=== PATIENT | female | born 2000 | race Caucasian/White ===

== ENCOUNTER 2025-02-25 10:37 | Emergency (ER) | payer OTHER, SELFPAY ==
--- NOTE | ~2025-02-25 | CT_ITS ---
CLINICAL HISTORY: periumbillical pain --- Additional Notes or Special Instructions: pt. does not have IV access @1620 - CF CT abdomen and pelvis with IV contrast. COMPARISON: None provided. FINDINGS: Partially visualized lung bases are unremarkable. No focal hepatic lesion. Normal gallbladder. Normal spleen. Normal pancreas. Normal adrenal glands. Symmetric renal enhancement. No hydronephrosis. Appendix is normal in caliber measuring up to 4 mm. No periappendiceal or pericecal inflammatory changes. Mild colonic stool burden. No bowel obstruction. No evidence of diverticulitis. No mesenteric or retroperitoneal lymphadenopathy. Normal abdominal aorta. Normal appearance of the urinary bladder. Dominant left ovarian cystic lesion measuring up to 2.2 cm. Small fat containing umbilical hernia. No surrounding inflammatory changes. No acute fracture or suspicious bone lesion IMPRESSION: 1. Small fat containing umbilical hernia. No surrounding inflammatory changes. No evidence of bowel involvement. 2. No evidence of appendicitis or bowel obstruction. No diverticulitis. 3. Dominant left ovarian cyst/follicle measuring up to 2.2 cm. This document has been electronically signed by: Forrest Kerr MD on 02/25/2025 17:44:56
--- NOTE | 2025-02-25 10:43 | ED.GENADULT ---
HPI - General Adult General Chief complaint: Abdominal Pain Stated complaint: Vomiting 2 weeks Time Seen by Provider: 02/25/25 16:03 Source: patient Mode of arrival: ambulatory Limitations: no limitations History of Present Illness ED Provider: Dr. Aicha Dennison HPI narrative: Patient comes to the emergency room complaining of nausea and vomiting for about 2 weeks and periumbilical pain. Patient states that a week ago she had diarrhea as well. Patient denies any chest pain or shortness of breath, no UTI symptoms. Patient states that she is currently menstruating. Patient states that any time that she eats anything she vomits. Related Data Previous Rx's ?Medication ?Instructions ?Recorded acetaminophen 500 mg tablet 500 mg PO Q6H PRN fever or pain 02/25/25 #30 tabs ibuprofen 600 mg tablet 600 mg PO Q8H PRN fever or pain 02/25/25 #30 tabs Allergies Allergy/AdvReac Type Severity Reaction Status Date / Time No Known Allergies (No Known Allergy Unverified 02/25/25 10:45 Allergies*) Review of Systems Review of Systems: Constitutional : No Weight loss, No Fever, No Chills, No Night Sweats, No Fatigue, No Malaise ENT/Mouth : No Hearing loss, No Ear Pain, No Nasal Congestion, No Sinus Pain, No Hoarseness, No sore throat, No Rhinorrhea, No Swallowing Difficulty Eyes: No Eye Pain, No Swelling, No Redness, No Foreign Body, No Discharge, No Vision Changes Cardiovascular : No Chest Pain, No SOB, No Dyspnea on Exertion, No Orthopnea, No Edema, No Palpitations Respiratory : No Cough, No Sputum, No Wheezing, No Smoke Exposure, No Dyspnea Gastrointestinal : Complaining of nausea and vomiting, resolved diarrhea,No Constipation, complaining of periumbilical pain Genitourinary : no irregular bleeding, No Dysuria, No Urinary Frequency, No Hematuria, No Urinary Incontinence, No Urgency, No Flank Pain, No Urinary Flow Changes, No Hesitancy Musculoskeletal : No joint pain, No Myalgias, No Joint Swelling Skin : No Skin Lesions, No rash Neuro : No Weakness, No Numbness, No Paresthesias, No Loss of Consciousness, No Dizziness, No Headache Psych : No Anxiety/Panic, No Depression, No SI/HI/AH/VH, No Social Issues, Heme/Lymph: No Bruising, No Bleeding,No Lymphadenopathy Endocrine : No Polyuria, No Polydipsia, No Temperature Intolerance [facility] Social History Social History Smoked in Last 30 Days: No Use of substances other than those prescribed or required for medical reasons: Yes Substance Use Type: Marijuana Advance Directives: No Advance Directives Information Provided: No Patient : No Physical Exam ED Exam Exam: Appearance: Alert. Oriented X3. No acute distress. Well-appearing, playing on her phone Eyes: Pupils equal, round and reactive to light. ENT: Pharynx normal. Neck: Normal inspection. Neck supple. No lymph nodes noted. No crepitus CVS: Normal heart rate and rhythm. Pulses normal. Normal S1 and S2 Respiratory: No respiratory distress. Breath sounds normal. No Wheezing. No rales Abdomen: Soft, nondistended, mild discomfort to palpation in the periumbilical area, very mild rebound, no guarding Skin: Skin warm and dry. Normal skin color. Normal skin turgor. Extremities: No lower extremity edema. No Lacerations. No Rash Neuro: Oriented X 3. No motor deficit. No sensory deficit. Moving all extremities. No slurred speech. CN 2 through 12 grossly intact Psych: calm, cooperative, normal affect Vital Signs: Vital Signs - 24 hr 02/25/25 10:44 02/25/25 16:40 Temperature 98 F 98.4 F Pulse Rate 82 80 Respiratory Rate 16 16 Blood Pressure 116/68 105/67 Pulse Oximetry 99 97 Oxygen Delivery Method Room Air Room Air BMI result Body Mass Index 23.4 Course Course Course Narrative: RME, this is a rapid medical exam performed by Marco Antonio Solomon please refer to primary provider for complete H&P- 24-year-old female presents for evaluation of nausea, vomiting for 2 weeks. She did have an episode of diarrhea. Plan for labs, urinalysis and testing. Medications Administered Discontinued Medications Generic Name Dose Route Start Last Admin Trade Name Freq PRN Reason Stop Dose Admin Sodium Chloride 1,000 mls @ 999 mls/hr 02/25/25 16:10 02/25/25 18:02 Ns IVCONT 02/25/25 17:10 Infused .Q1H1M ONE Infusion Iohexol 100 ml 02/25/25 16:52 02/25/25 16:55 Iohexol 350 Mg/Ml 100 Ml Infus..Btl IV 02/25/25 16:53 85 ml ONCE ONE Administration Ketorolac Tromethamine 30 mg 02/25/25 16:10 02/25/25 16:30 Ketorolac Tromethamine 30 Mg/Ml Vial IVPUSH 02/25/25 16:11 30 mg ONCE ONE Administration Ondansetron HCl 4 mg 02/25/25 16:10 02/25/25 16:31 Ondansetron Hcl 4 Mg/2 Ml Vial IVPUSH 02/25/25 16:11 4 mg ONCE ONE Administration Medical Decision Making Medical Decision Making [facility] Narrative: Patient receiving IV fluids, Zofran and ketorolac My interpretation of labs: No significant abnormality in patient's hematology and chemistry, negative hCG. Urinalysis positive for blood, patient is currently menstruating. Urine toxicology positive for buprenorphine and THC. My interpretation of CT scan: Small fat containing umbilical hernia, no evidence of appendicitis or bowel obstruction, no diverticulitis. Patient has a known left ovarian follicle/cyst measuring up to 2.2 cm I discussed the above-mentioned with the patient, patient responded well to ketorolac. Patient states that she follow-up with the PCP, has an appointment pending in 2 weeks. Differential Diagnosis Differential Diagnoses: The differential diagnosis associated with the presentation includes (Appendicitis, ovarian cyst, gastritis, gastroenteritis, diverticulitis) Admission/Observation Consideration of admission/observation: Escalation of care including admission/observation considered (Given patient's length of symptoms, observation was considered) Lab Data [facility] Lab Attestation statement: I reviewed the patient's lab results. 02/25/25 11:51 02/25/25 11:51 Labs: Lab Results 02/25/25 Range/Units 11:51 WBC 7.3 (4.8-10.8) X10*3/uL RBC 5.23 (4.20-5.50) X10*6/uL Hgb 15.6 (12.0-16.0) g/dl Hct 44.5 (37.0-47.0) % MCV 85.1 (80.0-98.0) fL MCH 29.8 (27.0-33.0) pg MCHC 35.1 H (31.0-35.0) g/dl RDW 11.6 (11.0-16.0) % Plt Count 262 (160-400) X10*3/uL MPV 10.2 (9.4-12.3) fL Immature Gran % (Auto) 0.3 (0.0-0.4) % Neut % (Auto) 64.0 (45-73) % Lymph % (Auto) 27.4 (20-40) % Cloud % (Auto) 6.9 (2-11) % Eos % (Auto) 0.8 (0-4) % Baso % (Auto) 0.6 (0-2) % Lymph # (Auto) 2.0 (1.2-4.9) X10*3/uL Cloud # (Auto) 0.5 (0.1-1.2) X10*3/uL Eos # (Auto) 0.1 (0.0-0.4) X10*3/uL Baso # (Auto) 0.0 (0.0-0.2) X10*3/uL Abs Immat Gran (auto) 0.02 (0.00-0.03) X10*3/uL Absolute Neuts (auto) 4.6 (2.0-8.3) x10*3/uL Absolute Nucleated RBC 0.000 (0.0-0.012) X10*3/uL Nucleated RBC % (auto) 0.0 (0.0-0.2) /100WBC Sodium 139 (135-145) mmol/L Potassium 3.9 (3.3-5.1) mmol/L Chloride 107 (96-108) mmol/L Carbon Dioxide 25 (22-29) mmol/L Anion Gap 11 L (12-20) BUN 12 (9-16) mg/dL Creatinine 0.69 (0.5-1.4) mg/dL Estim Creat Clear Calc 117.6 Estimated GFR > 60 Random Glucose 82 (60-115) mg/dL Calcium 9.5 (8.4-10.2) mg/dL Total Bilirubin 0.6 (0.0-1.0) mg/dL AST 20 (5-31) U/L ALT 14 (0-31) U/L Alkaline Phosphatase 53 (39-117) U/L Total Protein 7.1 (6.5-8.0) g/dL Albumin 5.0 (3.5-5.0) g/dL Lipase 19 (8-78) U/L Beta HCG, Quant < 2 mIU/mL Urine Color Yellow Urine Appearance Clear Urine pH 6.5 (5.0-9.0) Ur Specific [place] >= 1.030 H (1.005-1.025) Urine Protein 30 (1+) H (Neg-Trace) mg/dL Urine Glucose (UA) Negative (Negative) mg/dL Urine Ketones >=160 (Negative) mg/dL Urine Blood Large (3+) H (Negative) Urine Nitrite Negative (Negative) Ur Leukocyte Esterase Small (1+) H (Negative) Urine RBC 3-5 H (0-2) /HPF Urine WBC 0-5 (0-5) /HPF Ur Squamous Epith Cells 6-10 (0-2) /HPF Urine Bacteria Trace (None Seen) Hyaline Casts 0-2 (0-2) /LPF Urine Opiates Screen Not Detected (Not Detect) Ur Buprenorphine Scrn Positive H (Not Detect) ng/mL Ur Oxycodone Screen Not Detected (Not Detect) ng/mL Urine Methadone Screen Not Detected (Not Detect) ng/mL Urine Fentanyl Screen Not Detected (Not Detect) Ur Barbiturates Screen Not Detected (Not Detect) Ur Phencyclidine Scrn Not Detected (Not Detect) Ur Amphetamines Screen Not Detected (Not Detect) U Benzodiazepines Scrn Not Detected (Not Detect) Urine Cocaine Screen Not Detected (Not Detect) U Marijuana (THC) Screen POSITIVE H (Not Detect) Independent Interpretation I performed an independent interpretation of an: CT Scan Radiology Impression Discussion of test interpretation with radiology: I have reviewed the radiologist's reading. Radiologist Impression: Partially visualized lung bases are unremarkable. No focal hepatic lesion. Normal gallbladder. Normal spleen. Normal pancreas. Normal adrenal glands. Symmetric renal enhancement. No hydronephrosis. Appendix is normal in caliber measuring up to 4 mm. No periappendiceal or pericecal inflammatory changes. Mild colonic stool burden. No bowel obstruction. No evidence of diverticulitis. No mesenteric or retroperitoneal lymphadenopathy. Normal abdominal aorta. Normal appearance of the urinary bladder. Dominant left ovarian cystic lesion measuring up to 2.2 cm. Small fat containing umbilical hernia. No surrounding inflammatory changes. No acute fracture or suspicious bone lesion IMPRESSION: 1. Small fat containing umbilical hernia. No surrounding inflammatory changes. No evidence of bowel involvement. 2. No evidence of appendicitis or bowel obstruction. No diverticulitis. 3. Dominant left ovarian cyst/follicle measuring up to 2.2 cm. Critical Care Time Critical Care Time Critical Care Time: Yes Total Critical Care Time: 35 Attestation: I have personally provided critical care time. Time includes review of lab data, radiology results, discussion with consultants, and monitoring for potential decompensation. Intervention performed as documented. Discharge Plan Discharge Clinical Impression: Ovarian cyst Patient Disposition: Home, Self-Care Instructions: Ovarian Cyst (ED) Additional Instructions: Please follow-up with your primary care physician tomorrow. If you have any worsening or new symptoms, please return to the emergency room or call 911 Prescriptions: New ibuprofen 600 mg tablet 600 mg PO Q8H PRN (Reason: fever or pain) Qty: 30 0RF acetaminophen 500 mg tablet 500 mg PO Q6H PRN (Reason: fever or pain) Qty: 30 0RF Print Language: Indonesian
[2025-02-25 10:44] VITALS: BP 116/68; PULSE 82; RESP 16; TEMP 36.6; O2SAT 99; BMI 23.4
[2025-02-25 12:05] LABS: MANUAL DIFF FLAG NO
[2025-02-25 12:09] LABS: Appearance Urine Clear; Glucose Urine UA Negative (Negative); PH 6.5 (5.0-9.0); Specific Gravity - Urine >= 1.030 (1.005-1.025); UMIC TRIGGER UACC YES
[2025-02-25 12:15] LABS: Hematocrit 44.5 % (37.0-47.0); Hemoglobin 15.6 g/dl (12.0-16.0); Imm Gran Abs Auto 0.02 X10*3/uL (0.00-0.03); Imm Gran Pct Auto 0.3 % (0.0-0.4); Lymphocytes Absolute Auto 2.0 X10*3/uL (1.2-4.9); Mean Corpuscular HGB Conc 35.1 g/dl (31.0-35.0); Mean Corpuscular Hemoglobin 29.8 pg (27.0-33.0); Mean Corpuscular Volume 85.1 fL (80.0-98.0); NRBC Abs Auto 0.000 X10*3/uL (0.0-0.012); NRBC Pct Auto 0.0 /100WBC (0.0-0.2); Platelet Count 262 X10*3/uL (160-400); Red Blood Count 5.23 X10*6/uL (4.20-5.50); White Blood Count 7.3 X10*3/uL (4.8-10.8)
[2025-02-25 12:19] LABS: UACC Culture Trigger YES
[2025-02-25 12:29] LABS: Alanine Aminotransferase 14 U/L (0-31); Albumin Level 5.0 g/dL (3.5-5.0); Alkaline Phosphatase 53 U/L (39-117); Anion Gap 11 (12-20); Aspartate Amino Transferase 20 U/L (5-31); Blood Urea Nitrogen 12 mg/dL (9-16); Calcium 9.5 mg/dL (8.4-10.2); Carbon Dioxide 25 mmol/L (22-29); Chloride 107 mmol/L (96-108); Creatinine Clr Calc Pharmacy 117.6; Estimated Glomerular Filt Rate > 60; Lipase 19 U/L (8-78); Potassium 3.9 mmol/L (3.3-5.1); Sodium 139 mmol/L (135-145); Total Protein 7.1 g/dL (6.5-8.0)
[2025-02-25 12:31] LABS: Cannabinoid Screen Urine POSITIVE (Not Detect)
[2025-02-25 16:40] VITALS: BP 105/67; PULSE 80; RESP 16; TEMP 36.9; O2SAT 97
[2025-02-25] MEDS: iohexoL 350 MG/ML 100 ML INFUS..BTL IV (16:55)
[2025-02-25 19:00] VITALS: BP 117/71; PULSE 78; RESP 16; TEMP 36.8; O2SAT 97
--- OUTSIDE RECORDS SUMMARY | 2025-02-25 20:57 | XMS_ITS ---
Author Name [facility] Organization Unknown Care Team Organization Name Specialty Phone Email Start Date End Da te [facility] Charity Cunningham Primary Care 09/12/20222023 [facility] Birdie Rodriguez Primary Care 03/15/2022 12/25/2023
== END 2025-02-25 19:01 | disposition home or self-care (01) ==
PROVIDERS: Physician Assistant; Emergency Provider Emergency Medicine
DX: N83.202 Unspecified ovarian cyst, left side (principal); R11.2 Nausea with vomiting, unspecified; R10.22 Pelvic and perineal pain left side; K42.9 Umbilical hernia without obstruction or gangrene; Z51.81 Encounter for therapeutic drug level monitoring; Z79.899 Other long term (current) drug therapy
CPT/HCPCS: 36415; 74177; 80053; 80307; 81001; 83690; 84702; 85025; 87086; 96361; 96374; 96375; 99284; 99285; J1885; J2405; Q9967

== ENCOUNTER → 2025-02-25 16:10 | Outpatient (BNV) | payer OTHER, SELFPAY | PROVIDERS: Emergency Provider Emergency Medicine; Visit Provider Radiology Diagnostic Radiology | DX: K42.9 Umbilical hernia without obstruction or gangrene (principal); N83.02 Follicular cyst of left ovary | CPT/HCPCS: 74177 ==